=== PATIENT | female | born 1995 | race Caucasian/White ===

== ENCOUNTER 2021-02-07 20:15 | Emergency (ER) | payer SELFPAY ==
[2021-02-07 22:32] VITALS: BP 109/65; PULSE 76
[2021-02-08] MEDS ORDERED: Ibuprofen 600 MG Tab PO ONE (00:38)
--- NOTE | 2021-02-08 00:41 | EDM.PDOC ---
ED HPI GENERAL MEDICAL PROBLEM - General Chief Complaint: Lower Extremity Injury/Pain Stated Complaint: RT KNEE AND HIP PAIN Time Seen by Provider: 02/08/21 00:28 Source of Information: Reports: Patient History Limitations: Reports: No Limitations - History of Present Illness INITIAL COMMENTS - FREE TEXT/NARRATIVE: Ms. Severino is a pleasant 25-year-old woman who now presents the ED stating that she woke yesterday morning, 02/07/2021, with right knee pain radiating to her right hip. No visible abnormality, and she denies suffering any trauma to the right lower extremity. No prior similar symptoms. The patient has not taken any ooio-cva-tkjfqhk or home remedies to address her symptoms. Here in the ED, the patient is found to be hemodynamically stable, afebrile, saturating 99% on room air. She appears to be comfortable, in no acute distress. Prior to Saturday, the patient denies having a recent fever, chills, sore throat, ear pain, nasal or sinus congestion, cough, dyspnea, chest pain, palpitations, nausea, vomiting, constipation, diarrhea, abdominal pain, urinary symptoms, recent weight gain or weight loss, recent bloody bowel movements or black bowel movements, recent joint aches, headaches, or rashes. The patient does not have a PCP. She has not received a COVID vaccination, nor an influenza vaccination this season. Right Knee Pain Score (Numeric/FACES): 8 - Related Data Allergies Allergy/AdvReac Type Severity Reaction Status Date / Time Penicillins Allergy Anaphylactic Verified 02/07/21 22:30 Shock Home Meds: Home Meds . [No Known Home Meds] 09/26/14 [History] Past Medical History Respiratory History: Reports: Asthma (suspected, not PFT-tested) HAIR BLENDER History: Reports: Ectopic Endocrine/Metabolic History: Reports: Obesity/BMI 30+ - Infectious Disease History Infectious Disease History: Reports: Helicobacter Pylori - Past Surgical History Musculoskeletal Surgical History: Reports: Other (See Below) (left foot bunionectomy) Social & Family History - Tobacco Use Tobacco Use Status *Q: Never Tobacco User - Alcohol Use Alcohol Use History: Yes Alcohol Use Frequency: Socially - Recreational Drug Use Recreational Drug Use: No - Living Situation & Occupation Living situation: Reports: Single, with Family Occupation: Employed ([employer]) Review of Systems - Review of Systems Review Of Systems: Comprehensive ROS is negative, except as noted in HPI. ED EXAM, GENERAL - Physical Exam Exam: See Below Exam Limited By: No Limitations General Appearance: Alert, WD/WN, No Apparent Distress Extremities: Other (No visible abnormality to the right knee, when compared to the left, such as swelling, erythema, ecchymosis, or abrasion. The patient reports a slight tenderness to her anterior and lateral knee, but no tenderness elsewhere. Provocative meniscus tests are negative.) Course - Vital Signs Last Recorded V/S: Last Vital Signs Temp 36.8 C 02/07/21 22:30 Pulse 76 02/07/21 22:30 Resp 14 02/07/21 22:30 BP 109/65 02/07/21 22:30 Pulse Ox 99 02/07/21 22:30 - Orders/Labs/Meds Meds: Medications Discontinued Medications Generic Name Dose Route Start Last Admin Trade Name Leoq PRN Reason Stop Dose Admin Ibuprofen 600 mg 02/08/21 00:38 02/08/21 00:41 Ibuprofen 600 Mg Tab PO 02/08/21 00:39 600 mg ONETIME ONE Administration - Re-Assessments/Exams Free Text/Narrative Re-Assessment/Exam: 02/08/21 00:39 The patient has mild tenderness to her anterior lateral knee, with no visible changes, and no laxity to stressing either the medial or lateral collateral ligaments, or to anterior/posterior drawer sign. I recommended that she take [id number] ibuprofen. She requested a note to be off work yesterday. Departure - Departure Time of Disposition: 00:39 Disposition: Home, Self-Care 01 Condition: Good Clinical Impression: Right knee pain - Discharge Information *PRESCRIPTION DRUG MONITORING PROGRAM REVIEWED*: Not Applicable *COPY OF PRESCRIPTION DRUG MONITORING REPORT IN PATIENT NESTOR: Not Applicable Instructions: Acute Knee Pain, Adult Referrals: PCP,None [Primary Care Provider] - Felipe García MD [Physician] - Forms: ED Department Discharge, ED Return to Work/School Form Additional Instructions: You were seen in the emergency room for right knee pain. No significant injury was found on examination. Your pain is most likely due to knee strain. You have been started on ibuprofen. We recommend that you take [id number] ibuprofen, 3 tablets (600 mg) up to every 8 hours, with food, as needed for discomfort. If your symptoms fail to improve, please follow-up with the orthopedic Surgeon Dr. Felipe García. A note to be permitted to return to work has been provided. If any other problems, please do not hesitate to return to the ER. Sepsis Event Note (ED) - Evaluation Sepsis Screening Result: No Definite Risk
== END 2021-02-08 00:45 | disposition home or self-care (01) ==
LOC: JD.ED 20:15
DX: M25.561 Pain in right knee (principal); J45.909 Unspecified asthma, uncomplicated; E66.9 Obesity, unspecified; Z68.33 Body mass index [BMI] 33.0-33.9, adult; Z88.0 Allergy status to penicillin
CPT/HCPCS: 99282; 99283; A9270-GY

== ENCOUNTER 2021-11-05 04:17 | Emergency (ER) | payer OTHER ==
[2021-11-05 04:37] VITALS: BP 110/56; PULSE 104
== END 2021-11-05 04:55 | disposition home or self-care (01) ==
LOC: JD.ED 04:17
DX: R51.9 Headache, unspecified (principal); E66.9 Obesity, unspecified; Z68.27 Body mass index [BMI] 27.0-27.9, adult; Z88.0 Allergy status to penicillin; V89.2XXA Person injured in unspecified motor-vehicle accident, traffic, initial encounter; Y92.410 Unspecified street and highway as the place of occurrence of the external cause
CPT/HCPCS: 99282; 99284

== ENCOUNTER 2022-02-13 14:41 | Emergency (ER) | payer MEDICAID ==
[2022-02-13 14:50] VITALS: BP 117/53; PULSE 100
[2022-02-13] MEDS ORDERED: Cephalexin 500 MG Cap PO ONE (17:08)
== END 2022-02-13 18:09 | disposition home or self-care (01) ==
LOC: JD.ED 14:41
DX: O99.891 Other specified diseases and conditions complicating pregnancy (principal); N75.0 Cyst of Bartholin's gland; O99.512 Diseases of the respiratory system complicating pregnancy, second trimester; J45.909 Unspecified asthma, uncomplicated; O99.212 Obesity complicating pregnancy, second trimester; E66.9 Obesity, unspecified; Z88.0 Allergy status to penicillin; Z3A.18 18 weeks gestation of pregnancy
CPT/HCPCS: 99282; A9270

== ENCOUNTER 2022-06-03 13:00 | Emergency (ER) | payer MEDICAID ==
[2022-06-03] MEDS ORDERED: Sodium Chloride 0.9% 1,000 ML IV ONE (13:46)
[2022-06-03] MEDS ORDERED: Ondansetron 4 MG/2 ML SDV IVPUSH ONE (13:46)
[2022-06-03] MEDS ORDERED: Sodium Chloride 0.9% 10 ML Syringe FLUSH PRN (13:46)
[2022-06-03 19:34] VITALS: BP 103/62; PULSE 75
== END 2022-06-03 16:00 | disposition home or self-care (01) ==
LOC: JD.ED 13:00
DX: O21.2 Late vomiting of pregnancy (principal); Z88.0 Allergy status to penicillin; Z3A.33 33 weeks gestation of pregnancy
CPT/HCPCS: 96361; 96374; 99283; J2405; J7030; 99282

== ENCOUNTER 2022-07-04 09:08 | Inpatient (IN) | payer MEDICAID ==
[2022-07-04] MEDS ORDERED: Lidocaine 1% 50 ML MDV INJECT PRN (09:38)
[2022-07-04] MEDS ORDERED: Calcium Carbonate 500 MG Tab.Chew PO PRN (09:38)
[2022-07-04] MEDS ORDERED: Acetaminophen 325 MG Tab PO PRN ×2 (09:38→18:22)
[2022-07-04] MEDS ORDERED: Ondansetron 4 MG/2 ML SDV IVPUSH PRN (09:38)
[2022-07-04] MEDS ORDERED: Nalbuphine 10 MG/0.5 ML Syringe IVPUSH PRN (09:38)
[2022-07-04] MEDS ORDERED: Lactated Ringers 1,000 ML IV SCH (09:45)
[2022-07-04] MEDS ORDERED: Oxytocin/Lactated Ringers 10 UNIT/1,000 ML BAG IV SCH ×3 (09:45→18:22)
[2022-07-04] MEDS ORDERED: fentaNYL 100 MCG/2 ML SDV EPIDUR PRN (12:30)
[2022-07-04] MEDS ORDERED: diphenhydrAMINE 50 MG/ML SDV IVPUSH PRN (12:30)
[2022-07-04] MEDS ORDERED: ePHEDrine 50 MG/ML SDV IVPUSH PRN (12:30)
[2022-07-04] MEDS ORDERED: Bupivacaine/fentaNYL/NS 100 ML Bag EPIDUR PRN (12:30)
[2022-07-04] MEDS ORDERED: Benzocaine/Menthol 20%-0.5% Spray 78 GM Cannister TOP PRN (18:22)
[2022-07-04] MEDS ORDERED: Docusate Sodium 100 MG Cap PO PRN (18:22)
[2022-07-04] MEDS ORDERED: Hydrocortisone Acetate 25 MG Supp RECTAL PRN (18:22)
[2022-07-04] MEDS ORDERED: Measles, Mumps & Rubella Vaccine 0.5 ML SDV SUBCUT ONE (18:22)
[2022-07-04] MEDS ORDERED: Magnesium Hydroxide 400 MG/5 ML Susp 30 ML Cup PO PRN (18:22)
[2022-07-04] MEDS ORDERED: Witch Hazel Medicated Pads 40/Jar TOP PRN (18:22)
[2022-07-04] MEDS: Ibuprofen 600 MG Tab PO PRN (18:59)
[2022-07-05] MEDS: Ibuprofen 600 MG Tab PO PRN ×2 (04:12→15:45)
[2022-07-05] MEDS ORDERED: Prenatal Multivitamin with Calcium/Folic Acid/Iron Tab PO SCH (09:00)
[2022-07-05 17:33] VITALS: BP 116/68; PULSE 69
== END 2022-07-05 17:30 | disposition home or self-care (01) | DRG 807 ==
LOC: JD.OBCHECK 09:08 → JD.OB 09:38 → OBSVTOIN 17:00 → JD.OB 17:00
PROVIDERS: ADMIT Obstetrics & Gynecology; ATTEND Obstetrics & Gynecology
PROC: 10E0XZZ Delivery of Products of Conception, External Approach (ICD-10-PCS; principal; 2022-07-04)
PROC: 0HQ9XZZ Repair Perineum Skin, External Approach (ICD-10-PCS; 2022-07-04)
PROC: 0UQMXZZ Repair Vulva, External Approach (ICD-10-PCS; 2022-07-04)
DX: O42.02 Full-term premature rupture of membranes, onset of labor within 24 hours of rupture (principal); Z37.0 Single live birth; O70.0 First degree perineal laceration during delivery; O71.82 Other specified trauma to perineum and vulva; O62.3 Precipitate labor; O26.893 Other specified pregnancy related conditions, third trimester; O99.214 Obesity complicating childbirth; Z67.41 Type O blood, Rh negative; Z88.0 Allergy status to penicillin; Z3A.38 38 weeks gestation of pregnancy; Z98.890 Other specified postprocedural states
CPT/HCPCS: 36415; 59025; 59409; 85027; 86592; A9270-GY; J2590; J7120

== ENCOUNTER 2022-07-13 18:02 | Emergency (ER) | payer MEDICAID ==
[2022-07-13 18:42] VITALS: BP 115/58; PULSE 89
== END 2022-07-13 19:43 | disposition left against medical advice (07) ==
LOC: JD.ED 18:02
DX: Z53.21 Procedure and treatment not carried out due to patient leaving prior to being seen by health care provider (principal)

== ENCOUNTER 2023-03-27 15:59 | Emergency (ER) | payer MEDICAID ==
[2023-03-27] MEDS ORDERED: HYDROmorphone 1 MG/ML Syringe IM ONE (16:39)
[2023-03-27] MEDS ORDERED: cefTRIAXone 1 GM in Sodium Chloride 0.9% 100 ML IV ONE (16:39)
[2023-03-27] MEDS ORDERED: cefTRIAXone 1 GM, Lidocaine 1% 2.1 ML IM ONE ×2 (17:14)
[2023-03-27 19:01] VITALS: BP 116/63; PULSE 88
== END 2023-03-27 18:28 | disposition home or self-care (01) ==
LOC: JD.ED 15:59
DX: K04.7 Periapical abscess without sinus (principal); J45.909 Unspecified asthma, uncomplicated; E66.9 Obesity, unspecified; Z68.31 Body mass index [BMI] 31.0-31.9, adult; Z88.0 Allergy status to penicillin; Z79.899 Other long term (current) drug therapy
CPT/HCPCS: 96372; 99282; J0696; J1170; 99283; J3490